=== PATIENT | female | born 1955 | race Caucasian/White ===

== ENCOUNTER → 2017-05-08 09:43 | Outpatient (CLI) | payer BC | END | disposition home or self-care (01) | LOC: D.CT 09:43 | DX: R05 Cough (principal) ==

== ENCOUNTER → 2017-09-24 17:35 | Outpatient (CLI) | payer BC | END | disposition home or self-care (01) | LOC: D.MAMMO 08:30 | DX: R92.8 Other abnormal and inconclusive findings on diagnostic imaging of breast (principal) ==

== ENCOUNTER 2019-08-18 09:00 | Outpatient (CLI) | payer OTHER | END 2019-08-18 10:00 | disposition home or self-care (01) | LOC: D.MAMMO 09:00 | PROVIDERS: ATTEND Family Medicine | DX: Z85.3 Personal history of malignant neoplasm of breast (principal) ==